=== PATIENT | female | born 1975 | race Caucasian/White ===

== ENCOUNTER → 2018-01-18 | Outpatient (CLI) | payer MEDICARE ==
[~2018-01-18] MED LIST: ACET-789 PO; AMLO10TA82 PO; ATOM100C PO; BPR150TCR PO; CETI10CA PO; DIAZ5SOL3 PO; FLAX100032 PO; IBP600T1 PO; IOHEXOL 350 MG/ML 100 ML (OMNIPAQUE 350) VIAL IV ONE; LORA1TAB PO; METH0.2T45 PO; MTF500T PO; NAPR220C11 PO; NS 250 ML (IVPB) BAG IV ONE; OMEP20CA6 PO; OXYC-12 PO; TRAM50TA2 PO
[2018-01-18 09:21] LABS: ALBUMIN 4.2 GM/DL (3.2-4.5); BILIRUBIN,TOTAL 0.4 MG/DL (0.1-1.0); CALCIUM 9.5 MG/DL (8.5-10.1); CREATININE SERUM 1.08 MG/DL (0.60-1.30); POTASSIUM 4.8 MMOL/L (3.6-5.0); TOTAL PROTEIN 6.6 GM/DL (6.4-8.2)
--- NOTE | 2018-01-18 10:45 | Diagnostic Imaging Report ---
PROCEDURE: CT abdomen and pelvis with contrast. TECHNIQUE: Multiple contiguous axial images were obtained through the abdomen and pelvis after administration of intravenous contrast. INDICATION: Abdominal pain and possible hernia. COMPARISON: No prior studies are available for comparison. FINDINGS: The lung bases are clear. There is generalized low density throughout the liver suggestive of hepatic steatosis. No discrete liver mass is identified. The gallbladder is surgically absent. The pancreas and spleen are unremarkable. No adrenal mass is detected. The kidneys are unremarkable. Aorta is non-aneurysmal. There are mildly prominent lymph nodes in the cindi hepatis and portacaval region. Portacaval nodes are approximately 10-11 mm short axis. No central retroperitoneal lymphadenopathy is identified. No definite mesenteric lymphadenopathy is identified. Small and large bowel loops are of normal caliber. There is generalized colonic diverticulosis, most prominent in the descending and sigmoid colon, however, there are no findings to suggest acute diverticulitis. The bladder is unremarkable. The uterus appears to be surgically absent. No pelvic lymphadenopathy is seen. The bony structures are nonacute. There is a small fat-containing umbilical hernia noted. IMPRESSION: 1. Hepatic steatosis. 2. Nonspecific mild cindi hepatis and portacaval lymphadenopathy, etiology indeterminate. Continued close followup is recommended. 3. Small fat-containing umbilical hernia. 4. Uncomplicated diverticulosis. Dictated by: Dictated on workstation # [id number]
== END ==
LOC: RAD 08:36
PROVIDERS: ATTEND Nurse Practitioner Family
DX: K42.9 Umbilical hernia without obstruction or gangrene (principal); K76.0 Fatty (change of) liver, not elsewhere classified; R59.0 Localized enlarged lymph nodes; K57.30 Diverticulosis of large intestine without perforation or abscess without bleeding; Z90.49 Acquired absence of other specified parts of digestive tract
CPT/HCPCS: 36415; 74177; 80053

== ENCOUNTER → 2018-04-23 | Outpatient (CLI) | payer MEDICARE ==
[~2018-04-23] MED LIST changes: -IOHEXOL 350 MG/ML 100 ML (OMNIPAQUE 350) VIAL IV ONE; -NS 250 ML (IVPB) BAG IV ONE
--- NOTE | 2018-04-23 08:41 | Diagnostic Imaging Report ---
PROCEDURE: CT abdomen with contrast only. TECHNIQUE: Multiple contiguous axial images were obtained through the abdomen after the administration of intravenous contrast. INDICATION: Perihepatic and perigastric lymphadenopathy. The exam compared to 01/18/2018. Portacaval nodes at maximal short axis dimensions 9.2 and 7.9 mm today, previously 10.6 and 10.0 mm. Nodule at the cindi hepatis with a short axis dimension 7.9 mm today, previously 10 mm. The pancreas is unremarkable. Gallbladder absent. The liver unremarkable. Spleen negative. There is no adrenal mass. The unobstructed kidneys appeared normal. No dominant or suspicious mass. There is no ascites, obstructive features or inflammatory process. The lung base is nonacute. The osseous structures unremarkable. IMPRESSION: Small right upper quadrant portacaval lymph nodes measured smaller than on prior, no suspicious finding. No acute pathology. No adverse development. Dictated by: Dictated on workstation # [id number]
== END ==
LOC: RAD 07:51
PROVIDERS: ATTEND Nurse Practitioner
DX: R59.0 Localized enlarged lymph nodes (principal)
CPT/HCPCS: 74160

== ENCOUNTER 2019-07-13 19:54 | Emergency (ER) | payer MEDICARE ==
[~2019-07-13] VITALS: Ht 165.1 cm; Wt 119.7 kg
[2019-07-13] MEDS ORDERED: NS IV 1000 ML 1,000 ML IV STA (20:19)
[2019-07-13 20:28] LABS: BASOPHILS % (AUTO) 0 % (0-10); EOSINOPHILS # (AUTO) 0.1 10^3/uL (0.0-0.3); EOSINOPHILS % (AUTO) 1 % (0-10); HEMATOCRIT 45 % (35-52); HEMOGLOBIN 14.9 G/DL (11.5-16.0); LYMPHOCYTES # (AUTO) 1.1 X 10^3 (1.0-4.0); LYMPHOCYTES % (AUTO) 7 % (12-44); MEAN CORPUSCULAR HEMOGLOBIN 29 PG (25-34); MEAN CORPUSCULAR HGB CONC 34 G/DL (32-36); MEAN CORPUSCULAR VOLUME 87 FL (80-99); MEAN PLATELET VOLUME 9.3 FL (7.4-10.4); MONOCYTES % (AUTO) 7 % (0-12); NEUTROPHILS # (AUTO) 13.3 X 10^3 (1.8-7.8); NEUTROPHILS % (AUTO) 86 % (42-75); PLATELET COUNT 279 10^3/uL (130-400); RED CELL DISTRIBUTION WIDTH 13.6 % (10.0-14.5); WHITE BLOOD COUNT 15.6 10^3/uL (4.3-11.0)
[2019-07-13] MEDS ORDERED: ONDANSETRON 4 MG/2 ML (SDV) Z0FRAN IVP ONE (20:30)
[2019-07-13] MEDS ORDERED: HYOSCYAMINE 0.125 MG (LEVSIN) TAB SL ONE (20:30)
--- NOTE | 2019-07-13 20:30 | ED GI ---
General Chief Complaint: General Problems/Pain Stated Complaint: HEADACHE, UPSET STOMACH,FEVER Nursing Triage Note: pt arrives with c/o headache, chills, nausea, body aches and diarrhea onset yesterday. pt states taking tylenol at 1800. pt denies vomiting. pt states a fever of 101.9 this afternoon. Sepsis Screen: No Definite Risk Source of Information: Patient Exam Limitations: No Limitations (CHARLEY FERRELL) History of Present Illness Date Seen by Provider: Jul 13, 2019 Time Seen by Provider: 20:00 Initial Comments Pt presents with fever, chills, and diarrhea that started yesterday. The diarrhea is watery with no blood, and the fever and chills have been temporarily relieved by the Tylenol she took prior to arriving. She states she has a history fo abdominal pain for which she was given dicyclomine, however she only take 1 of the 4 pills she has been prescribed due to adverse side effects. Timing/Duration: 1 Day Severity/Quality: Moderate Location: Unknown Radiation: No Radiation Activities at Onset: None Modifying Factors: Improves With Eating Associated Symptoms: Fever/Chills, Fatigue, Headache, Nausea/Vomiting (CHARLEY FERRELL) Initial Comments Here with report of fever, chills and diarrhea that started 1-2 days ago and has and persistent since. Denies bloody diarrhea or blood in her urine. She has had fever and chills with body aches and overall feels terrible. She took Tylenol and ibuprofen and that's only helping minimally. Timing/Duration: 1-2 Days Severity/Quality: Moderate, Cramping Location: Generalized Abdomen Radiation: No Radiation Activities at Onset: None Modifying Factors: Improves With Defecating; Worsens With Eating Associated Symptoms: Fever/Chills, Fatigue, Headache, Nausea/Vomiting (HAYDEN MOHR MD) Allergies and Home Medications Allergies Coded Allergies: Cefpodoxime (Verified Allergy, Unknown, 05/27/07) Cephalexin (Verified Allergy, Unknown, 05/27/07) Tetracycline (Verified Allergy, Unknown, "CYCLINES", 05/27/07) Home Medications Amlodipine Besylate 10 Mg Tablet, 1 EACH PO DAILY, (Reported) Atomoxetine Hcl 100 Mg Capsule, 100 MG PO DAILY, (Reported) Bupropion Hcl 150 Mg Tablet, 3 TAB PO DAILY, (Reported) Cetirizine Hcl 10 Mg Capsule, 10 MG PO HS, (Reported) Diazepam 5 Mg/5 Ml Solution, 5 MG PO PRN, (Reported) Flaxseed Oil 1,000 Mg Capsule, 1,000 MG PO BID, (Reported) Ibuprofen 600 Mg Tab, 600 MG PO Q6H, (Reported) Lorazepam 1 Mg Tablet, 1 EACH PO PRN, (Reported) Metformin Hcl 500 Mg Tablet, 1 EACH PO BID, (Reported) Naproxen Sodium 220 Mg Capsule, 440 MG PO BID, (Reported) Omeprazole 20 Mg Capsule.dr, 20 MG PO DAILY, (Reported) Oxycodone Hcl/Acetaminophen 1 Each Tablet, 1-2 EACH PO Q4H, (Reported) Tramadol Hcl 50 Mg Tablet, 50 MG PO PRN, (Reported) Patient Home Medication List Home Medication List Reviewed: Yes (HAYDEN MOHR MD) Review of Systems Review of Systems Constitutional: chills, fever, weakness EENTM: Nose Congestion, Other (Chronic sinus pressure) Respiratory: Denies Cough, Denies Shortness of Air Cardiovascular: No Symptoms Reported; Denies Chest Pain Gastrointestinal: Abdominal Pain, Diarrhea, Nausea, Poor Appetite; Denies Vomiting Genitourinary: No Symptoms Reported Musculoskeletal: no symptoms reported Skin: no symptoms reported (CHARLEY FERRELL) Constitutional: see HPI EENTM: No Throat Pain; Other (Chronic sinus pressure) Respiratory: No Symptoms Reported Cardiovascular: No Symptoms Reported Gastrointestinal: See HPI Genitourinary: No Symptoms Reported Musculoskeletal: No joint pain; muscle pain Skin: no symptoms reported (HAYDEN MOHR MD) All Other Systems Reviewed Negative Unless Noted: Yes (HAYDEN MOHR MD) Past Qusylto-Gnqquj-Pbbecu Hx Past Med/Social Hx: Reviewed Nursing Past Med/Soc Hx (HAYDEN MOHR MD) Patient Social History Alcohol Use: Denies Use Recreational Drug Use: No Recent Foreign Travel: No Contact w/Someone Who Travel: No Recent Infectious Disease Expo: Yes Recent Hopitalizations: No (SURGERIES/CHILDBIRTH/CONCUSSION/KIDNEY STONE/MENTAL ILLNESS/SPIDER BITE) Physical Abuse: No Sexual Abuse: No Mistreated: No Fear: No (CHARLEY FERRELL) Past Medical History Surgeries: Yes (CHEVY/APPY//D & C) Respiratory: No Cardiac: No Neurological: No Reproductive Disorders: Yes (PCOS/ENDOMETRIOSIS/OVARIAN CYST) Sexually Transmitted Disease: No Gastrointestinal: Yes Musculoskeletal: Yes Endocrine: No Psychosocial: Yes Blood Disorders: Yes (CHARLEY FERRELL) Family Medical History Reviewed Nursing Family Hx (HAYDEN MOHR MD) No Pertinent Family Hx (HAYDEN MOHR MD) Physical Exam Vital Signs Vital Signs - First Documented 07/13/19 20:14 Temp 99.5 Pulse 106 Resp 18 B/P (MAP) 149/80 (103) O2 Delivery Room Air (HAYDEN MOHR MD) Vital Signs Capillary Refill : Less Than 3 Seconds (CHARLEY FERRELL) Height/Weight/BMI Height: 5'5.00" Weight: 264lbs. 0.0oz. [id number]; 43.93 BMI Method:Stated General Appearance: WD/WN, no apparent distress Neck: non-tender, full range of motion, supple, normal inspection Respiratory: chest non-tender, lungs clear, normal breath sounds, no respiratory distress, no accessory muscle use Cardiovascular: regular rate, rhythm, no JVD, no murmur Peripheral Pulses: 2+ Dorsalis Pedis (R), 2+ Left Dors-Pedis (L), 2+ Radial Pulses (R), 2+ Radial Pulses (L) Gastrointestinal: normal bowel sounds, soft, no pulsatile mass, tenderness (Mild LLQ tenderness that is chronic) Extremities: normal range of motion, no calf tenderness Neurologic/Psychiatric: no motor/sensory deficits, alert, normal mood/affect, oriented x 3 Skin: normal color, warm/dry (CHARLEY FERRELL) General Appearance: WD/WN, mild distress HEENT: PERRL/EOMI, pharynx normal Neck: non-tender, full range of motion, supple, normal inspection Respiratory: lungs clear, normal breath sounds, no respiratory distress Cardiovascular: no murmur, tachycardia Gastrointestinal: soft, tenderness (Mild LLQ tenderness that is chronic) Extremities: normal range of motion, no pedal edema, no calf tenderness Back: normal inspection, no CVA tenderness, no vertebral tenderness Neurologic/Psychiatric: alert, oriented x 3 Skin: normal color, warm/dry (HAYDEN MOHR MD) Focused Exam Lactate Level 07/13/19 22:57: Lactic Acid Level 1.09 (HAYDEN MOHR MD) Lactic Acid Level Laboratory Tests Test 07/13/19 22:57 Lactic Acid Level 1.09 MMOL/L (0.50-2.00) (HAYDEN MOHR MD) Progress/Results/Core Measures Results/Orders Lab Results Laboratory Tests Test 07/13/19 20:04 07/13/19 21:08 07/13/19 22:57 Range/Units White Blood Count 15.6 H 4.3-11.0 10^3/uL Red Blood Count 5.12 4.35-5.85 10^6/uL Hemoglobin 14.9 11.5-16.0 G/DL Hematocrit 45 35-52 % Mean Corpuscular Volume 87 80-99 FL Mean Corpuscular Hemoglobin 29 25-34 PG Mean Corpuscular Hemoglobin Concent 34 32-36 G/DL Red Cell Distribution Width 13.6 10.0-14.5 % Platelet Count 279 130-400 10^3/uL Mean Platelet Volume 9.3 7.4-10.4 FL Neutrophils (%) (Auto) 86 H 42-75 % Lymphocytes (%) (Auto) 7 L 12-44 % Monocytes (%) (Auto) 7 0-12 % Eosinophils (%) (Auto) 1 0-10 % Basophils (%) (Auto) 0 0-10 % Neutrophils # (Auto) 13.3 H 1.8-7.8 X 10^3 Lymphocytes # (Auto) 1.1 1.0-4.0 X 10^3 Monocytes # (Auto) 1.0 0.0-1.0 X 10^3 Eosinophils # (Auto) 0.1 0.0-0.3 10^3/uL Basophils # (Auto) 0.0 0.0-0.1 10^3/uL Neutrophils % (Manual) 74 % Lymphocytes % (Manual) 8 % Monocytes % (Manual) 8 % Eosinophils % (Manual) 0 % Basophils % (Manual) 0 % Band Neutrophils 10 % Blood Morphology Comment NORMAL Prothrombin Time 13.9 12.2-14.7 SEC INR Comment 1.0 0.8-1.4 Activated Partial Thromboplast Time 32 24-35 SEC Sodium Level 140 135-145 MMOL/L Potassium Level 3.9 3.6-5.0 MMOL/L Chloride Level 104 98-107 MMOL/L Carbon Dioxide Level 23 21-32 MMOL/L Anion Gap 13 5-14 MMOL/L Blood Urea Nitrogen 13 7-18 MG/DL Creatinine 1.18 0.60-1.30 MG/DL Estimat Glomerular Filtration Rate 50 BUN/Creatinine Ratio 11 Glucose Level 110 H 70-105 MG/DL Calcium Level 9.3 8.5-10.1 MG/DL Corrected Calcium 9.1 8.5-10.1 MG/DL Total Bilirubin 0.7 0.1-1.0 MG/DL Aspartate Amino Transf (AST/SGOT) 16 5-34 U/L Alanine Aminotransferase (ALT/SGPT) 26 0-55 U/L Alkaline Phosphatase 92 40-136 U/L C-Reactive Protein High Sensitivity 6.51 H 0.00-0.50 MG/DL Total Protein 6.6 6.4-8.2 GM/DL Albumin 4.2 3.2-4.5 GM/DL Urine Color YELLOW Urine Clarity CLEAR Urine pH 6 5-9 Urine Specific [place] 1.005 L 1.016-1.022 Urine Protein 1+ H NEGATIVE Urine Glucose (UA) NEGATIVE NEGATIVE Urine Ketones NEGATIVE NEGATIVE Urine Nitrite NEGATIVE NEGATIVE Urine Bilirubin NEGATIVE NEGATIVE Urine Urobilinogen NORMAL NORMAL MG/DL Urine Leukocyte Esterase 1+ H NEGATIVE Urine RBC (Auto) NEGATIVE NEGATIVE Urine RBC NONE /HPF Urine WBC 0-2 /HPF Urine Squamous Epithelial Cells 25-50 H /HPF Urine Crystals NONE /LPF Urine Bacteria NONE /HPF Urine Casts NONE /LPF Urine Mucus NEGATIVE /LPF Urine Culture Indicated NO Lactic Acid Level 1.09 0.50-2.00 MMOL/L (HAYDEN MOHR MD) Micro Results Microbiology 07/13/19 Influenza Types A,B Antigen (RADHIKA) - Final, Complete (HAYDEN MOHR MD) My Orders Orders - HAYDEN MOHR MD Cbc With Automated Diff (07/13/19 20:19) Comprehensive Metabolic Panel (07/13/19 20:19) Hs C Reactive Protein (07/13/19 20:19) Ua Culture If Indicated (07/13/19 20:19) Influenza A And B Antigens (07/13/19 20:19) Ondansetron Injection (Zofran Injectio (07/13/19 20:30) Ns Iv 1000 Ml (Sodium Chloride 0.9%) (07/13/19 20:19) Hyoscyamine Sl Tablet (Levsin Sl Tablet) (07/13/19 20:30) Ed Iv/Invasive Line Start (07/13/19 20:19) Manual Differential (07/13/19 20:04) Lactic Acid Analyzer (07/13/19 22:18) Blood Culture (07/13/19 22:18) Ed Iv/Invasive Line Start (07/13/19 22:18) Lactated Ringers (Lr 1000 Ml Iv Solution (07/13/19 22:18) Stool Culture (07/13/19 23:20) Rotavirus Antigen (07/13/19 23:20) Sputum Culture (07/13/19 23:28) Protime With Inr (07/13/19:28) Partial Thromboplastin Time (07/13/19 23:28) Chest 1 View, Ap/Pa Only (07/13/19 23:28) Vital Signs Adult Sepsis Patie Q15M (07/13/19 23:28) Remove Rings In Anticipation O (07/13/19 23:28) Piperacillin Sodium/Tazobactam (Zosyn Vi (07/14/19 00:15) Metronidazole 500mg/100ml Ivpb (Flagyl 5 (07/14/19 00:15) Fentanyl Injection (Sublimaze Injection (07/14/19 00:50) Fentanyl Injection (Sublimaze Injection (07/14/19 00:58) (HAYDEN MOHR MD) Medications Given in ED Current Medications Medications Dose Ordered Sig/Edwina Route Start Time Stop Time Status Last Admin Dose Admin Hyoscyamine Sulfate 0.125 mg ONCE ONCE SL 07/13/19 20:30 07/13/19 20:31 DC 07/13/19 20:30 0.125 MG Ketorolac Tromethamine 30 mg ONCE ONCE IVP 07/13/19 22:30 07/13/19 22:31 DC 07/13/19 22:57 30 MG Lactated Ringer's 1,000 ml @ 0 mls/hr Q0M ONCE IV 07/13/19 22:18 07/13/19 22:20 DC 07/13/19 22:57 0 MLS/HR Ondansetron HCl 4 mg ONCE ONCE IVP 07/13/19 20:30 07/13/19 20:31 DC 07/13/19 20:30 4 MG Piperacillin Sod/ Tazobactam Sod 4.5 gm/Sodium Chloride 100 ml @ 200 mls/hr ONCE ONCE IV 07/14/19 00:15 07/14/19 00:44 DC 07/14/19 00:48 200 MLS/HR (HAYDEN MOHR MD) Vital Signs/I&O 07/13/19 07/13/19 20:14 23:00 Temp 99.5 103.1 Pulse 106 106 Resp 18 20 B/P (MAP) 149/80 (103) 135/55 O2 Delivery Room Air 07/14/19 00:00 Intake Total 1000 ml Balance 1000 ml (HAYDEN MOHR MD) Blood Pressure Mean: 103 Progress Progress Note : Time: 20:00 Progress Note Patient seen by me. She reports diarrhea associated with fatigue, fever and chills that started yesterday. She has only been able to take in minimal fluids today due to nausea. She has a history of abdominal pain treated with dicyclomine. I spoke with Dr Mohr about the patient he order a CBC, CMP, UA, Nasal flu swab, 1L of fluids, and hyoscyamine. We will monitor the patient and wait for labs to return. (CHARLEY FERRELL) Progress Note : Progress Note Has seen and evaluated patient and agree with above except as indicated. Have directed the plan of care. IV, labs, UA, normal saline 1 L bolus and less than 0.125 mg by mouth. Monitor patient. 2230: We have added CT abdomen pelvis and Toradol 30 mg IV due to persistence of pain and abnormal labs. Monitor patient. 2355: CT does note colitis. Given patient's persistent diarrhea and fever as well as other abnormalities, patient will require admission. We have ordered stool for culture as well as rotavirus. We have initiated IV antibiotics. Patient is allergic to cephalosporin so we will use Zosyn 4.5 g IV and Flagyl 500 mg IV. I discussed the case with Dr. Salazar, on-call for Dr. Tillman and he accepts patient for admission, inpatient status for her service. Discussed with patient and family who agree with plan and are appreciative. 0100: Patient still has pain. Fentanyl 75 g IV. Pending bed assignment but is admitted. (HAYDEN MOHR MD) Diagnostic Imaging Diagonstic Imaging: CT Plain Films/CT/US/NM/MRI: abdomen, pelvis Comments Mild low attenuation mural thickening suggested in the cecum and proximal ascending colon. Fluid stool throughout the colon. Findings may represent colitis. There is also moderate sigmoid diverticulosis without convincing evidence of diverticulitis. Reviewed: Reviewed Night [facility] Study (HAYDEN MOHR MD) Departure Communication (Admissions) Time/Spoke to Admitting Phy: 23:55 (HAYDEN MOHR MD) Impression Primary Impression: Colitis Additional Impression: Intractable diarrhea Disposition: ADMITTED INPATIENT Condition: Stable Admissions Decision to Admit Reason: Admit from ER (General) Decision to Admit/Date: Jul 13, 2019 Time/Decision to Admit Time: 23:55 (HAYDEN MOHR MD) Departure-Patient Inst. Referrals: JAMILA TILLMAN MD (PCP/Family) Primary Care Physician CHARLEY FERRELL Jul 13, 2019 20:30 HAYDEN MOHR MD Jul 14, 2019 01:06
[2019-07-13 20:40] LABS: ALBUMIN 4.2 GM/DL (3.2-4.5); BILIRUBIN,TOTAL 0.7 MG/DL (0.1-1.0); CALCIUM 9.3 MG/DL (8.5-10.1); CREATININE SERUM 1.18 MG/DL (0.60-1.30); POTASSIUM 3.9 MMOL/L (3.6-5.0); TOTAL PROTEIN 6.6 GM/DL (6.4-8.2)
[2019-07-13 20:50] LABS: BAND NEUTROPHILS 10 %; BASOPHILS % (MANUAL) 0 %; EOSINOPHILS % (MANUAL) 0 %; LYMPHOCYTES % (MANUAL) 8 %; MONOCYTES % (MANUAL) 8 %; NEUTROPHILS % (MANUAL) 74 %; RBC MORPH NORMAL
[2019-07-13 21:13] LABS: BILIRUBIN,URINE NEGATIVE (NEGATIVE); CLARITY,URINE CLEAR; COLOR,URINE YELLOW; GLUCOSE, URINE (UA) NEGATIVE (NEGATIVE); KETONES,URINE NEGATIVE (NEGATIVE); LEUKOCYTE ESTERASE ,URINE 1+ (NEGATIVE); NITRITE,URINE NEGATIVE (NEGATIVE); PH,URINE 6 (5-9); PROTEIN,URINE 1+ (NEGATIVE); UROBILINOGEN,URINE NORMAL (NORMAL)
[2019-07-13 21:24] LABS: SQUAMOUS EPITHELIAL CELL,UR 25-50 /HPF; WBC,URINE 0-2 /HPF
[2019-07-13] MEDS ORDERED: LACTATED RINGERS 1,000 ML IV ONE (22:18)
[2019-07-13] MEDS ORDERED: KETOROLAC 30 MG/ML VIAL IVP ONE (22:30)
[2019-07-13 23:42] LABS: PROTHROMBIN TIME PATIENT 13.9 SEC (12.2-14.7)
[2019-07-14] MEDS ORDERED: PIPERACILLIN SODIUM/TAZOBACTAM 4.5 GM in NS (IVPB) 100 ML IV ONE (00:15)
[2019-07-14] MEDS ORDERED: metroNIDAZOLE 500MG/100ML IVPB 100 ML IV ONE (00:15)
--- NOTE | 2019-07-14 00:15 | NUR ---
PT TO BE ADMITTED, BUT WILL REMAIN IN ER UNTIL BED AVAILABLE/STAFFING AVAILABILITY.
[2019-07-14] MEDS ORDERED: fentaNYL INJECTION 100 MCG/2 ML AMP ONE (00:50)
[2019-07-14] MEDS ORDERED: fentaNYL INJECTION 100 MCG/2 ML AMP IVP STA ×2 (00:58→03:38)
--- NOTE | 2019-07-14 01:00 | NUR ---
PT RESTING IN BED QUIETLY. NO CONCERNS AT THIS TIME. VSS.
--- NOTE | 2019-07-14 02:00 | NUR ---
PT UP TO BATHROOM. NO CONCERNS AT THIS TIME. VSS.
[2019-07-14] MEDS ORDERED: NS IV 1000 ML 1,000 ML IV SCH (02:15)
--- NOTE | 2019-07-14 03:30 | NUR ---
PT UP TO BATHROOM. DENIES PAIN OR DISCOMFORT. NO CONCERNS AT THIS TIME. VSS.
[2019-07-14] MEDS ORDERED: ACETAMINOPHEN 500 MG TAB (TYLENOL) PO STA (03:38)
[2019-07-14] MEDS ORDERED: ONDANSETRON 4 MG/2 ML (SDV) Z0FRAN IVP ONE (03:45)
--- NOTE | 2019-07-14 06:40 | Diagnostic Imaging Report ---
TECHNIQUE: Multiple contiguous axial images were obtained through the abdomen and pelvis after administration of intravenous contrast. Auto Exposure Controls were utilized during the CT exam to meet ALARA standards for radiation dose reduction. INDICATION: Headache, upset stomach. EXAMINATION: CT abdomen and pelvis with contrast, 07/13/19. COMPARISON: Abdomen and pelvis CT from 01/18/2018. FINDINGS: No acute process is seen within the visualized lung bases. Osseous structures demonstrate no acute abnormality. Degenerative findings noted. There has been previous cholecystectomy. There is fatty infiltration throughout the liver. The spleen, adrenal glands unremarkable for acute abnormality. Pancreas is slightly fatty in appearance. No surrounding inflammatory change is appreciated. The kidneys demonstrate no acute disease. There is no ascites or free air. Diverticulosis is noted without evidence for diverticulitis. Minimal mural thickening noted along the cecum and ascending colon, nonspecific in nature. IMPRESSION: 1. Minimal wall thickening of the right colon as described, nonspecific, perhaps due to focal colitis, correlate with symptoms. No significant surrounding inflammatory change is seen. Diverticulosis also noted but no evidence for diverticulitis. Please note, appendix is not visualized. Dictated by: Dictated on workstation # [id number]
--- NOTE | 2019-07-14 06:43 | Diagnostic Imaging Report ---
INDICATION: Upset stomach, headaches. EXAMINATION: Chest dated 07/13/2019. COMPARISON: 08/28/2012. FINDINGS: Linear atelectasis is seen at both lung bases. No infiltrates or effusions. No pneumothorax is seen. Heart is unremarkable. Pulmonary vasculature may be slightly congested. IMPRESSION: 1. Mild pulmonary vascular congestion. 2. Bibasilar atelectasis. Dictated by: Dictated on workstation # [id number]
[2019-07-14] MEDS ORDERED: fentaNYL INJECTION 100 MCG/2 ML AMP IVP ONE (06:45)
[2019-07-14] MEDS ORDERED: metroNIDAZOLE 500MG/100ML IVPB 100 ML IV SCH (07:15)
[2019-07-14] MEDS ORDERED: PIPERACILLIN/TAZOBACTAM (BULK) 4.5 GM in NS (IVPB) 100 ML IV SCH (08:30)
[2019-07-14] MEDS ORDERED: ACETAMINOPHEN 500 MG TAB (TYLENOL) PO ONE (11:00)
[2019-07-14 11:54] VITALS: BP 140/103
== END 2019-07-14 11:54 | disposition short-term general hospital (02) ==
LOC: EDUNIT# 19:54 → ER 19:56
DX: K52.9 Noninfective gastroenteritis and colitis, unspecified (principal); Z88.1 Allergy status to other antibiotic agents; Z79.84 Long term (current) use of oral hypoglycemic drugs
CPT/HCPCS: 36415; 71045; 74177; 80053; 81000; 83605; 85007; 85027; 85610; 85730; 86141; 87015; 87040; 87045; 87046; 87425; 87804; 87899

== ENCOUNTER 2020-06-25 11:12 | Outpatient (CLI) | payer MEDICARE ==
[~2020-06-25] VITALS: Ht 162 cm; Wt 131.3 kg
[2020-06-25] MEDS ORDERED: FLAX100031 PO (12:11)
[2020-06-25] MEDS ORDERED: NF-VITD400 PO (12:11)
[2020-06-25] MEDS ORDERED: FEXO1TAB43 PO (12:11)
[2020-06-25] MEDS ORDERED: FERR-84 PO (12:11)
[2020-06-25] MEDS ORDERED: BUPR300T98 PO (12:11)
[2020-06-25] MEDS ORDERED: VITA1CAP19 PO (12:11)
[2020-06-25] MEDS ORDERED: OMEP20CA18 PO (12:11)
== END 2020-06-25 12:20 | disposition home or self-care (01) ==
LOC: PREOP 11:12
PROVIDERS: ATTEND Surgery
DX: Z01.818 Encounter for other preprocedural examination (principal)

== ENCOUNTER 2020-06-28 08:57 | Day surgery (SDC) | payer MEDICARE ==
[2020-06-28] VITALS (11 sets, daily range): BP systolic 107–130; BP diastolic 75–92
[~2020-06-28] VITALS: Ht 162 cm; Wt 131.3 kg
[~2020-06-28 08:57] MED LIST changes: +BUPR300T98 PO; +FERR-84 PO; +FEXO1TAB43 PO; +FLAX100031 PO; +NF-VITD400 PO; +OMEP20CA18 PO; +VITA1CAP19 PO
[2020-06-28] MEDS ORDERED: BUP/EPI 0.5% 1:200,000 (MARCAINE) 10ML VIAL IJ ONE (10:00)
[2020-06-28] MEDS ORDERED: ROCURONIUM 10 MG/ML 5 ML SYRINGE IV ONE (10:06)
[2020-06-28] MEDS ORDERED: LIDOCAINE PF 2% 5 ML (XYLOCAINE) VIAL ONE (10:06)
[2020-06-28] MEDS ORDERED: proPOfol 200 MG/20 ML (DIPRIVAN) VIAL IV ONE ×2 (10:06→10:11)
[2020-06-28] MEDS ORDERED: ONDANSETRON 4 MG/2 ML (SDV) Z0FRAN ONE (10:06)
[2020-06-28] MEDS ORDERED: fentaNYL INJECTION 100 MCG/2 ML AMP ONE (10:07)
[2020-06-28] MEDS ORDERED: MIDAZOLAM 2 MG/2 ML (VERSED) VIAL ONE (10:07)
[2020-06-28] MEDS ORDERED: SEVOFLURANE (ULTANE) 15 ML INHAL SOLN ONE ×2 (10:07→11:31)
[2020-06-28] MEDS ORDERED: LACTATED RINGERS 1,000 ML IV PRN (10:14)
[2020-06-28] MEDS ORDERED: ceFAZolin 2 GM IV Premixed 50 ML IV ONE (11:00)
[2020-06-28] MEDS ORDERED: CLINDAMYCIN 900 MG/50 ML IVPB 50 ML IV ONE ×2 (11:05→11:15)
--- NOTE | 2020-06-28 11:07 | Progress Note-Pre Operative ---
Pre-Operative Progress Note H&P Reviewed The H&P was reviewed, patient examined and no changes noted. Time Seen by Provider: 11:04 Date H&P Reviewed: Jun 28, 2020 Time H&P Reviewed: 11:05 Pre-Operative Diagnosis: Right inguinal mass, site marked JAMAAL HINES DO Jun 28, 2020 11:07
[2020-06-28] MEDS ORDERED: FLUC150T2 PO (11:44)
[2020-06-28] MEDS ORDERED: SULF1TAB35 PO (11:44)
--- NOTE | 2020-06-28 12:07 | Progress Note-Post Operative ---
Post-Operative Progess Note Surgeon (s)/[employer] (s) Surgeon JAMAAL HINES DO [employer]: WALDO Kaplan Pre-Operative Diagnosis Right inguinal mass, site marked Post-Operative Diagnosis same pending path Procedure & Operative Findings Date of Procedure 06/28/20 Procedure Performed/Findings Excision of inguinal mass, 8.3 x 3.2 cm into subcutaneous tissue Anesthesia Type MAC Estimated Blood Loss Estimated blood loss (mL): less than 5ml Specimens/Packing Specimens Removed right inguinal mass JAMAAL HINES DO Jun 28, 2020 12:07
[2020-06-28] MEDS ORDERED: ACHYD1T PO (12:08)
--- NOTE | 2020-06-28 12:09 | Discharge Inst-Surgical ---
Discharge Inst-Surgical Depart Medication/Instructions New, Converted or Re-Newed RX: RX Given to Pt/Family Patient Instructions Follow up Appt: Make appointment for 1 week. [phone] Instructions: No lifting greater than 20 pounds. No strenuous activity. May shower in 24 hours, no tub bath or soaking. Use incentive spirometer at home as directed. No Smoking Skin/Wound Care: May remove bandages in am. You need to leave the Dermabond on incision it will fall off on it's own. Symptoms to Report: Appetite Changes, Extremity Discoloration, Numbness/Tingling, Swelling Increased, Bleeding Excessive, Eyesight Changes, Pain Increased, Urine Color Change, Constipation(Persistent), Fever over 101 degree F, Pain/Pressure in chest, Urinating Difficulty, Cough Up/Vomit Blood, Heart Beat Irreg/Pounding, Pain/Pressure in jaw, Cramps in feet or legs, Lightheadedness, Pain/Pressure in shoulder, Diarrhea(Persistent), Memory Changes Suddenly, Questions/Concerns, Weight gain consecutive days, Dizziness/Fainting, Nausea/Vomiting, Shortness of Breath, Weight gain over 2 pounds If questions or concerns contact your physician Or seek help at emergency department. Activity Activity Instructions: Avoid Stress to Incision Driving Instructions: No Driving/Refer to Dr. Encarnacion Discharge Diet: No Restrictions Diet After 24 Hours: Clear Liquid if Nauseous If Any Problems/Questions/Issu: Contact Your Physician, Go to Emergency Room Skin/Wound Care Infection Signs and Symptoms: Increased Redness, Foul Odor of Wound, Increased Drainage, Skin Itchy or Has a Rash, Increased Swelling, Temperature Above 101 F Bathing Instructions: Shower Stitches/Anali/Dermabond Dis: JAMAAL Elena DO Jun 28, 2020 12:09
--- NOTE | 2020-06-28 12:14 | Anesthesia-General Post-Op ---
General Patient Condition Mental Status/LOC: Same as Preop Cardiovascular: Satisfactory Nausea/Vomiting: Absent Respiratory: Satisfactory Pain: Controlled Complications: Absent Post Op Complications Complications None Follow Up Care/Instructions Patient Instructions None needed. Anesthesia/Patient Condition Patient Condition Patient is doing well, no complaints, stable vital signs, no apparent adverse anesthesia problems. No complications reported per nursing. FREDY COOPER CRNA Jun 28, 2020 12:14
[2020-06-28] MEDS ORDERED: fentaNYL INJECTION 100 MCG/2 ML AMP IVP ONE (12:15)
[2020-06-28] MEDS ORDERED: morphine INJ 10 MG/ML 1ML (SYR OR VIAL) IVP ONE (12:15)
[2020-06-28] MEDS ORDERED: MEPERIDINE (DEMEROL) INJ 50 MG/ML IVP ONE (12:15)
[2020-06-28] MEDS ORDERED: ONDANSETRON 4 MG/2 ML (SDV) Z0FRAN IVP PRN (12:15)
--- NOTE | 2020-06-28 12:35 | NUR ---
TO AMB SURG FROM PAR PER CART. ALERT, RATES RIGHT GROIN SURGICAL SITE PAIN 1 ON NUMERIC SCALE. ICE PACK AT SITE. TAPED GAUZE DSG D/I TO SITE. PO FLUIDS PROVIDED.
--- NOTE | 2020-06-28 13:30 | NUR ---
NO CHANGE IN SITE ASSESSMENT. PAIN RATED "ABOUT A 2". PAIN MED OFFERED, STATES SHE WILL WAIT AND TAKE ONE AT HOME. HAS BEEN UP TO BR TO VOID, GAIT STEADY. TAKING PO FLUIDS WITHOUT PROBLEM. AWAITING DR HINES'S ARRIVAL FOR SIGNATURE ON HYDROCODONE/APAP SCRIPT TO GIVE TO PT ON DISMISSAL.
[2020-06-28] MEDS ORDERED: HYDROcodone/APAP 10 MG/325 MG (LORTAB) TAB PO ONE ×2 (14:00→14:05)
--- NOTE | 2020-06-28 14:13 | NUR ---
STATES RIGHT GROIN SURGICAL SITE PAIN IS 3. HAS HAD CRACKERS. HYDROCODONE/ACETAMINOPHEN 10/325 MG, ONE TAB, GIVEN PO. STILL AWAITING DR HINES'S ARRIVAL FOR DISMISSAL.
--- NOTE | 2020-06-28 14:40 | NUR ---
HYDROCODONE/APAP SCRIPT SIGNED BY DR. TATUM IS READY FOR DISMISSAL. SURGICAL SITE PAIN RATED 2.
--- NOTE | 2020-06-29 01:07 | OPERATIVE REPORT ---
DATE OF SERVICE: PREOPERATIVE DIAGNOSIS: Right inguinal mass. POSTOPERATIVE DIAGNOSIS: Right inguinal mass, pending pathology. PROCEDURE: Excision of right inguinal mass measuring 8.3 x 3.2 cm down into the subcutaneous tissue. SURGEON: Gen Sheridan DO TUBULAR RIVETER: Dulce Guerra MS3. ANESTHESIA: MAC. SPECIMEN: Right inguinal mass sent to pathology. This mass originating the subcutaneous tissue and the incision was 8.3 x 3.2 cm. INDICATION FOR PROCEDURE: The patient is a 44-year-old female, who had a mass that was in her right inguinal region getting bigger and then she said it eroded through the skin needed to get this removed. FINDINGS: The patient had a right inguinal mass that was removed and sent to pathology. This site had been marked preoperatively. PROCEDURE NOTE: After informed consent was obtained, the patient was brought to the operating room, placed on the operating table in supine position. Right leg was frog legged out. She was then sterilely prepped and draped in normal fashion. Local lidocaine was used to infiltrate the skin under and around this mass. I then made an elliptical incision, carried down through the skin into subcutaneous tissue with #15 blade measured this incision was 8.3 cm x 3.2 cm long. It went down into the subcutaneous tissue, deepened down to subcutaneous tissue with Bovie electrocautery, going down under and around this mass and removing en bloc. I then marked the specimen, short stitch superior, long stitch lateral, sent to pathology. Copiously irrigated with normal saline. Hemostasis obtained using Bovie electrocautery. I then elected to close this incision in 2 layers, closing the deep layer with a 3-0 Vicryl 5 interrupted subcutaneous stitches and then closed the skin with a 4-0 undyed Monocryl in a running subcuticular fashion. Area was cleaned and dried. Dermabond placed as well as then addressing. The patient tolerated the procedure. Sponge, instrument and needle count correct at the end of the case. Job ID: [id number] DocumentID: [id number] Dictated Date: 06/28/2020 17:47:28 Nuclear Engineering Technician Date: 06/29/2020 01:06:43 Dictated By: GEN SHERIDAN DO [facility]
== END 2020-06-28 14:40 | disposition home or self-care (01) ==
LOC: SDC 08:57
PROVIDERS: ATTEND Surgery
DX: C44.529 Squamous cell carcinoma of skin of other part of trunk (principal); I10 Essential (primary) hypertension; F32.9 Major depressive disorder, single episode, unspecified; F41.9 Anxiety disorder, unspecified; E78.5 Hyperlipidemia, unspecified; F41.1 Generalized anxiety disorder; F17.210 Nicotine dependence, cigarettes, uncomplicated; E66.9 Obesity, unspecified; Z68.43 Body mass index [BMI] 50.0-59.9, adult; Z79.899 Other long term (current) drug therapy; Z88.1 Allergy status to other antibiotic agents; Z90.710 Acquired absence of both cervix and uterus
CPT/HCPCS: 87081; 88305

== ENCOUNTER → 2020-11-02 | Outpatient (CLI) | payer MEDICARE ==
[~2020-11-02] MED LIST changes: +ACHYD1T PO; +FLUC150T2 PO; +SULF1TAB35 PO
--- NOTE | 2020-11-03 09:05 | NUR ---
Notified of positive COVID test.
== END ==
LOC: LABNPT 08:11
PROVIDERS: ATTEND Family Medicine
DX: U07.1 COVID-19 (principal); J06.9 Acute upper respiratory infection, unspecified
CPT/HCPCS: 87804; U0002; 87635

== ENCOUNTER 2021-03-24 05:58 | Emergency (ER) | payer MEDICARE ==
[~2021-03-24] VITALS: Ht 162 cm; Wt 127.0 kg
[2021-03-24 06:47] LABS: BILIRUBIN,URINE NEGATIVE (NEGATIVE); CLARITY,URINE CLEAR; COLOR,URINE YELLOW; GLUCOSE, URINE (UA) NEGATIVE (NEGATIVE); KETONES,URINE NEGATIVE (NEGATIVE); LEUKOCYTE ESTERASE ,URINE NEGATIVE (NEGATIVE); NITRITE,URINE NEGATIVE (NEGATIVE); PROTEIN,URINE NEGATIVE (NEGATIVE)
[2021-03-24 07:22] LABS: BACTERIA,URINE NEGATIVE /HPF
--- NOTE | 2021-03-24 07:23 | ED Abdominal Pain ---
General Chief Complaint: Abdominal/GI Problems Stated Complaint: RT SIDE PAIN Source of Information: Patient Exam Limitations: No Limitations History of Present Illness Date Seen by Provider: March 24, 2021 Time Seen by Provider: 07:10 Initial Comments Patient is a 45-year-old female who presents to the emergency department today with a chief complaint of right flank pain. Patient states that she woke up with pain in the middle the night. She states the pain was in her back and right side radiating around into her lower abdomen. Patient states the pain seemed to radiate into her vagina and urethra. Patient states that at its worst the pain was "a 20". She states now her pain is about "2". She states that she had some nausea. She did not vomit. She denies any problems with bowel movements. No diarrhea, black or bloody stools. She states that the pain reminds her of her kidney stone pain that she had about 20 years ago. She denies hematuria. She is endorsing some dysuria at this point and some urinary frequency. No abnormal vaginal discharge, the patient is status post hysterecto my. Patient tells me that she is primarily very tired at this point. She did not take anything for the pain. All other review of systems reviewed and negative except as stated above. Timing/Duration: 1-3 Hours Severity/Quality: Mild Location: RUQ, RLQ Radiation: Back Activities at Onset: None Associated Symptoms: Nausea/Vomiting Allergies and Home Medications Allergies Coded Allergies: cefpodoxime (Verified Allergy, Unknown, 06/25/20) cephalexin (Verified Allergy, Unknown, 06/25/20) doxycycline (Unverified Allergy, Unknown, Hives, 06/28/20) tetracycline (Verified Allergy, Unknown, "CYCLINES", 06/25/20) Home Medications Bupropion HCl 300 Mg Tab.er.24h, 300 MG PO DAILY, (Reported) Ferrous Sulfate 325 Mg Tablet, 325 MG PO DAILY, (Reported) Fexofenadine/Pseudoephedrine 1 Each Tab.er.24h, 1 EACH PO DAILY, (Reported) Flaxseed Oil 1,000 Mg Capsule, 1,000 MG PO DAILY, (Reported) Fluconazole 150 Mg Tablet, 150 MG PO DAILY, (Reported) Hydrocodone Bit/Acetaminophen 1 Ea Tab, 1 TAB PO Q6H Prescribed by: JAMAAL HINES on 06/28/20 1208 Omeprazole 20 Mg Capsule.dr, 20 MG PO DAILY, (Reported) Sulfamethoxazole/Trimethoprim 1 Each Tablet, 1 EACH PO BID, (Reported) Vitamin B Complex 1 Each Capsule, 1 EACH PO DAILY, (Reported) Vitamin D 10 Mcg Tablet, 400 MCG PO DAILY, (Reported) Patient Home Medication List Home Medication List Reviewed: Yes Review of Systems Review of Systems Constitutional: see HPI EENTM: No Symptoms Reported Respiratory: No Symptoms Reported Cardiovascular: No Symptoms Reported Gastrointestinal: Abdominal Pain Genitourinary: Burning, Frequency Musculoskeletal: back pain (right flank) Skin: no symptoms reported All Other Systems Reviewed Negative Unless Noted: Yes Past Nnnlkuh-Ikobww-Gvfqka Hx Patient Social History Type Used: Cigarettes 2nd Hand Smoke Exposure: Yes Recent Hopitalizations: No Seasonal Allergies Seasonal Allergies: Yes Past Medical History Surgeries: Yes (/D & C) Appendectomy, Gallbladder, Hysterectomy Respiratory: No Cardiac: No Neurological: No Reproductive Disorders: Yes (PCOS/ENDOMETRIOSIS/OVARIAN CYST) BREASTER History: Hysterectomy Sexually Transmitted Disease: No Genitourinary: Yes Kidney Stones Gastrointestinal: Yes Gastroesophageal Reflux, Chronic Constipation, Chronic Diarrhea Musculoskeletal: Yes Arthritis, Chronic Back Pain Endocrine: No HEENT: Yes (GLASSES) Loss of Vision: Denies Hearing Impairment: Denies Cancer: No Psychosocial: Yes Anxiety, Depression Integumentary: No Blood Disorders: Yes (ANEMIA ) Adverse Reaction/Blood Tranf: No (HAS HAD BLOOD WITH NO REACITON) Family Medical History No Pertinent Family Hx Physical Exam Vital Signs Vital Signs - First Documented 03/24/21 07:15 Temp 35.4 Pulse 81 Resp 18 B/P (MAP) 162/120 (134) Pulse Ox 95 Capillary Refill : Height/Weight/BMI Height: 5'5.00" Weight: 264lbs. 0.0oz. 119.453264zz; 50.03 BMI Method:Stated General Appearance: WD/WN, no apparent distress HEENT: PERRL/EOMI Respiratory: lungs clear, normal breath sounds, no respiratory distress, no accessory muscle use Cardiovascular: regular rate, rhythm Gastrointestinal: soft, tenderness (Mild right flank tenderness, no CVA tenderness, right sided suprapubic tenderness) Extremities: normal range of motion, non-tender, normal inspection, no pedal edema Back: normal inspection, no CVA tenderness Neurologic/Psychiatric: alert, normal mood/affect, oriented x 3 Skin: normal color, warm/dry Progress/Results/Core Measures Results/Orders Lab Results Laboratory Tests Test 03/24/21 06:30 03/24/21 07:26 Range/Units Urine Color YELLOW Urine Clarity CLEAR Urine pH 6.0 5-9 Urine Specific [place] 1.020 1.016-1.022 Urine Protein NEGATIVE NEGATIVE Urine Glucose (UA) NEGATIVE NEGATIVE Urine Ketones NEGATIVE NEGATIVE Urine Nitrite NEGATIVE NEGATIVE Urine Bilirubin NEGATIVE NEGATIVE Urine Urobilinogen 0.2 < = 1.0 MG/DL Urine Leukocyte Esterase NEGATIVE NEGATIVE Urine RBC (Auto) 2+ H NEGATIVE Urine RBC 2-5 H /HPF Urine WBC NONE /HPF Urine Squamous Epithelial Cells 2-5 /HPF Urine Crystals NONE /LPF Urine Bacteria NEGATIVE /HPF Urine Casts NONE /LPF Urine Mucus NEGATIVE /LPF Urine Culture Indicated NO Sodium Level 141 135-145 MMOL/L Potassium Level 4.2 3.6-5.0 MMOL/L Chloride Level 105 98-107 MMOL/L Carbon Dioxide Level 27 21-32 MMOL/L Anion Gap 9 5-14 MMOL/L Blood Urea Nitrogen 16 7-18 MG/DL Creatinine 1.17 0.60-1.30 MG/DL Estimat Glomerular Filtration Rate 50 BUN/Creatinine Ratio 14 Glucose Level 115 H 70-105 MG/DL Calcium Level 9.2 8.5-10.1 MG/DL My Orders Orders - KARLIE ALFONSO MD Ua Culture If Indicated (03/24/21 06:41) Ed Iv/Invasive Line Start (03/24/21 07:23) Basic Metabolic Panel (03/24/21 07:23) Abdomen/Kub 1view (03/24/21 07:23) Ct Abd/Pelvis Wo(Kidney Stone) (03/24/21 07:23) Ketorolac Injection (Toradol Injection) (03/24/21 07:30) Ondansetron Injection (Zofran Injectio (03/24/21 07:30) Medications Given in ED Current Medications Medications Dose Ordered Sig/Edwina Route Start Time Stop Time Status Last Admin Dose Admin Ketorolac Tromethamine 15 mg ONCE ONCE IVP 03/24/21 07:30 03/24/21 07:31 DC 03/24/21 07:31 15 MG Ondansetron HCl 4 mg ONCE ONCE IVP 03/24/21 07:30 03/24/21 07:31 DC 03/24/21 07:31 4 MG Vital Signs/I&O 03/24/21 07:15 Temp 35.4 Pulse 81 Resp 18 B/P (MAP) 162/120 (134) Pulse Ox 95 Progress Progress Note : Time: 08:52 Progress Note Rechecked patient. She is feeling much better. She has a little bit of discomfort periodically. Nothing like when she had onset of pain. CT scan of the abdomen and pelvis shows nothing acute in the right urinary tract. No evidence of stones. Patient will be sent home with supportive care, pushing fluids ibuprofen and Ty lenol. Return precautions have been given. She verbalized understanding. All questions are sought and answered. Patient is stable for discharge. Departure Impression Primary Impression: Acute right flank pain Additional Impression: Hematuria Qualified Codes: R31.9 - Hematuria, unspecified Disposition: 01 HOME, SELF-CARE Condition: Stable Departure-Patient Inst. Decision time for Depature: 08:53 Referrals: JAMILA ADAN MD (PCP/Family) Primary Care Physician Patient Instructions: Kidney Stones in Adults Add. Discharge Instructions: Drink plenty of fluids to stay well-hydrated. Take rovv-pbe-libpzfe ibuprofen, 3 pills which is 600 mg, every 6 hours with food as needed for pain. Come back to the emergency department for reevaluation if you have a return of pain, fever, vomiting or any other emergent, concerning symptoms. Copy Copies To 1: JAMILA ADAN MD, KATHRYN M MD March 24, 2021 07:23
[2021-03-24] MEDS ORDERED: KETOROLAC 30 MG/ML VIAL IVP ONE (07:30)
[2021-03-24] MEDS: ONDANSETRON 4 MG/2 ML (SDV) Z0FRAN IVP ONE (07:31)
[2021-03-24 07:49] LABS: POTASSIUM 4.2 MMOL/L (3.6-5.0)
[2021-03-24 07:50] LABS: CALCIUM 9.2 MG/DL (8.5-10.1)
[2021-03-24 07:54] LABS: CREATININE SERUM 1.17 MG/DL (0.60-1.30)
--- NOTE | 2021-03-24 08:48 | Diagnostic Imaging Report ---
PROCEDURE: CT urinary tract, rule out kidney stone. TECHNIQUE: Multiple contiguous axial images were obtained through the abdomen and pelvis without the use of intravenous contrast. Auto Exposure Controls were utilized during the CT exam to meet ALARA standards for radiation dose reduction. INDICATION: Abdominal pain. COMPARISON: 07/13/2019 FINDINGS: Included portions of the lung bases are clear. CT ABDOMEN: There is colonic diverticulosis, but no CT evidence of acute diverticulitis. Small bowel loops are nondistended. Normal appendix cannot be adequately identified, but there is no pericecal inflammation. The kidneys, adrenal glands, spleen, pancreas, and liver have an unremarkable noncontrast CT appearance. There is no loculated fluid collection, free fluid, nor free air within the abdomen. No abnormal mesenteric or retroperitoneal adenopathy is seen. Osseous structures show no acute abnormalities. CT PELVIS: Urinary bladder is unopacified. No calculi are seen within the urinary bladder. There is no loculated fluid collection, free fluid or free air. No abnormal lymph nodes are identified. Osseous structures showed no acute abnormalities. IMPRESSION: 1. No acute abnormalities are seen within the abdomen or pelvis. 2. Colonic diverticulosis, but no CT evidence of acute diverticulitis. Dictated by: Dictated on workstation # [id number]
--- NOTE | 2021-03-24 08:49 | Diagnostic Imaging Report ---
INDICATION: Lower abdominal and pelvic pain. COMPARISON: CT abdomen and pelvis from later same day FINDINGS: Two supine radiographic views of the abdomen were obtained and show nondistended loops of small bowel. There is no large collection of free intraperitoneal air. No unexpected extraosseous calcifications or radiopaque foreign bodies are seen. Osseous structures show age-related degenerative changes. IMPRESSION: 1. Nonobstructive small bowel gas pattern. Dictated by: Dictated on workstation # [id number]
[2021-03-24 09:09] VITALS: BP 159/100
== END 2021-03-24 09:08 | disposition home or self-care (01) ==
LOC: EDUNIT# 05:58 → ER 06:02
DX: R10.31 Right lower quadrant pain (principal); R10.11 Right upper quadrant pain; R31.9 Hematuria, unspecified; K21.9 Gastro-esophageal reflux disease without esophagitis; G89.29 Other chronic pain; M54.9 Dorsalgia, unspecified; F32.9 Major depressive disorder, single episode, unspecified; Z88.1 Allergy status to other antibiotic agents; Z77.22 Contact with and (suspected) exposure to environmental tobacco smoke (acute) (chronic); Z79.891 Long term (current) use of opiate analgesic; Z79.899 Other long term (current) drug therapy
CPT/HCPCS: 36415; 74018; 74176; 80048; 81000

== ENCOUNTER 2023-08-21 14:10 | Emergency (ER) | payer MEDICARE ==
[~2023-08-21] VITALS: Ht 165.1 cm; Wt 128.3 kg
[~2023-08-21 14:10] MED LIST changes: -FLUC150T2 PO; +FLUC150T41 PO; -SULF1TAB35 PO; +SULF1TAB38 PO
--- NOTE | 2023-08-21 14:40 | ED Back Pain ---
General Chief Complaint: Back Problems Stated Complaint: BACK PAIN | Nursing Triage Note: PT AMB TO RM 7 WITH CC OF L FLANK PAIN X 1 WEEK. PT REPORTS PAIN RADIATES FROM L LOWER BACK TO L LOWER ABD/SIDE. PT STATES WAS SENT FROM DR. HARRISON OFFICE FOR US. PT REPORTS RX OF ANTIBIOTIC X 1WEEK. Source of Information: Patient Exam Limitations: No Limitations History of Present Illness Date Seen by Provider: Aug 21, 2023 Time Seen by Provider: 14:40 Initial Comments Patient is a 48yo female who presents to the ER with left flank pain onset about 1 week to 10 days ago. She is concerned she has colitis. The pain seems to radiate around her left flank to her left lower stomach. She has been having "soft" not really formed stool - non black, non bloody. Has had bouts of colitis in the past as well as diverticulitis. Has had prior colonoscopy with polyp and then 3 year follow up which was clear. No nausea/vomiting- has been on clear liquids and has "tested" herself with solid food which seems to worsen her symptoms. She states that she has had a little dysuria this morning but attributes that to possibly being dehydrated. She has had previous cholecystectomy, appendectomy, total hysterectomy. No fevers or chills. Currently rates her pain at a "5" at its worst at a "10". Did take ibuprofen last night which seems to help a little bit. Has had previous kidney stone. She states this feels different. She called her primary care physician's office last week and was started on Augmentin for concern for diverticulitis. Its not helping Location: Other (left flank) Timing/Duration: Other (1-2 weeks; worse today) Severity: Severe (10+ at it's worst) Allergies and Home Medications Allergies Coded Allergies: cefpodoxime (Verified Allergy, Unknown, 06/25/20) cephalexin (Verified Allergy, Unknown, 06/25/20) doxycycline (Unverified Allergy, Unknown, Hives, 06/28/20) ondansetron (Verified Allergy, Unknown, 08/21/23) tetracycline (Verified Allergy, Unknown, "CYCLINES", 06/25/20) Patient Home Medication List Bupropion HCl (Bupropion Xl) 300 Mg Tab.er.24h, 300 MG PO DAILY, (Reported) Entered as Reported by: GEMINI GARNETT on 06/25/20 1211 Ferrous Sulfate (Iron) 325 Mg Tablet, 325 MG PO DAILY, (Reported) Entered as Reported by: GEMINI GARNETT on 06/25/20 1211 Fexofenadine/Pseudoephedrine (Vijaya-D 24 Hour Tablet) 1 Each Tab.er.24h, 1 EACH PO DAILY, (Reported) Entered as Reported by: GEMINI GARNETT on 06/25/20 1211 Flaxseed Oil (Flax Seed Oil) 1,000 Mg Capsule, 1,000 MG PO DAILY, (Reported) Entered as Reported by: GEMINI GARNETT on 06/25/20 1211 Fluconazole (Fluconazole) 150 Mg Tablet, 150 MG PO DAILY, (Reported) Entered as Reported by: BALJIT GOTTLIEB on 06/28/20 1144 Hydrocodone Bit/Acetaminophen (HYDROcodone/APAP 10/325 TABLET) 1 Ea Tab, 1 TAB PO Q6H Prescribed by: JAMAAL HINES on 06/28/20 1208 Omeprazole (Omeprazole) 20 Mg Capsule.dr, 20 MG PO DAILY, (Reported) Entered as Reported by: GEMINI GARNETT on 06/25/20 1211 Sulfamethoxazole/Trimethoprim (Bactrim Ds Tablet) 1 Each Tablet, 1 EACH PO BID, (Reported) Entered as Reported by: BALJIT GOTTLIEB on 06/28/20 1144 Vitamin B Complex (Super B-50 Complex) 1 Each Capsule, 1 EACH PO DAILY, (Reported) Entered as Reported by: GEMINI GARNETT on 06/25/20 1211 Vitamin D (Vitamin D3) 10 Mcg Tablet, 400 MCG PO DAILY, (Reported) Entered as Reported by: GEMINI GARNETT on 06/25/20 1211 Review of Systems Constitutional: see HPI EENTM: no symptoms reported Respiratory: no symptoms reported Cardiovascular: no symptoms reported Gastrointestinal: abdominal pain Genitourinary: dysuria (mild burning this morning) : No Musculoskeletal: other (left flank pain) Skin: no symptoms reported Psychiatric/Neurological: No Symptoms Reported All Other Systems Reviewed Negative Unless Noted: Yes Past Yrtkqyy-Xylpsu-Elbmxq Hx Patient Social History Tobacco Use?: Yes Tobacco type used: Cigarettes Smoking Status: Current Everyday Smoker Substance use?: No Alcohol Use?: Yes Alcohol Frequency: Once in a while Seasonal Allergies Seasonal Allergies: Yes Past Medical History Surgery/Hospitalization HX: HS Surgeries: Yes (/D & C) Appendectomy, Section, Gallbladder, Hysterectomy Respiratory: No Cardiac: No Neurological: No Reproductive Disorders: Yes (PCOS/ENDOMETRIOSIS/OVARIAN CYST) FRONT DESK ASSISTANT History: Hysterectomy Sexually Transmitted Disease: No Genitourinary: Yes Kidney Stones Gastrointestinal: Yes Gastroesophageal Reflux, Chronic Constipation, Chronic Diarrhea Musculoskeletal: Yes Arthritis, Chronic Back Pain Endocrine: No HEENT: Yes (GLASSES) Loss of Vision: Denies Hearing Impairment: Denies Cancer: No Psychosocial: Yes Anxiety, Depression Integumentary: No Blood Disorders: Yes (ANEMIA ) Adverse Reaction/Blood Tranf: No (HAS HAD BLOOD WITH NO REACITON) Family Medical History No Pertinent Family Hx Physical Exam Vital Signs Vital Signs - First Documented 08/21/23 14:14 Temp 36.1 Pulse 84 Resp 20 B/P (MAP) 176/110 (132) Pulse Ox 96 O2 Delivery Room Air Capillary Refill : Less Than 3 Seconds Height, Weight, BMI Height: 5'5.00" Weight: 264lbs. 0.0oz. 119.088848mo; 47.00 BMI Method:Stated General Appearance: No Apparent Distress, WD/WN HEENT: PERRL/EOMI, Moist Mucous Membranes Neck: Normal Inspection Cardiovascular: Regular Rate, Rhythm, Normal Peripheral Pulses Respiratory: Lungs Clear, Normal Breath Sounds, No Accessory Muscle Use, No Respiratory Distress Gastrointestinal: Normal Bowel Sounds, Soft, Tenderness (mild tenderness Left upper quadrant and left flank (exam is confounded by obesity)) Back: No CVA Tenderness Extremity: Normal Capillary Refill, Normal Inspection, Normal Range of Motion Neurologic/Psychiatric: Alert, Oriented x3, No Motor/Sensory Deficits, Normal Mood/Affect Skin: Normal Color, Warm/Dry; No Rash Progress/Results/Core Measures Results/Orders Lab Results Laboratory Tests Test 08/21/23 14:38 08/21/23 14:46 Range/Units Urine Color YELLOW Urine Clarity CLEAR Urine pH 5.5 5-9 Urine Specific [place] 1.015 L 1.016-1.022 Urine Protein NEGATIVE NEGATIVE Urine Glucose (UA) NEGATIVE NEGATIVE Urine Ketones NEGATIVE NEGATIVE Urine Nitrite NEGATIVE NEGATIVE Urine Bilirubin NEGATIVE NEGATIVE Urine Urobilinogen 0.2 < = 1.0 MG/DL Urine Leukocyte Esterase NEGATIVE NEGATIVE Urine RBC (Auto) NEGATIVE NEGATIVE Urine RBC NONE /HPF Urine WBC RARE /HPF Urine Squamous Epithelial Cells 10-25 H /HPF Urine Crystals NONE /LPF Urine Bacteria NEGATIVE /HPF Urine Casts NONE /LPF Urine Hyaline Casts /LPF Urine Mucus NEGATIVE /LPF Urine Culture Indicated NO White Blood Count 10.4 4.3-11.0 10^3/uL Red Blood Count 5.40 H 3.80-5.11 10^6/uL Hemoglobin 16.0 11.5-16.0 g/dL Hematocrit 49 35-52 % Mean Corpuscular Volume 90 80-99 fL Mean Corpuscular Hemoglobin 30 25-34 pg Mean Corpuscular Hemoglobin Concent 33 32-36 g/dL Red Cell Distribution Width 12.7 10.0-14.5 % Platelet Count 351 130-400 10^3/uL Mean Platelet Volume 9.4 9.0-12.2 fL Immature Granulocyte % (Auto) 0 % Neutrophils (%) (Auto) 60 42-75 % Lymphocytes (%) (Auto) 29 12-44 % Monocytes (%) (Auto) 7 0-12 % Eosinophils (%) (Auto) 3 0-10 % Basophils (%) (Auto) 0 0-10 % Neutrophils # (Auto) 6.3 1.8-7.8 X 10^3 Lymphocytes # (Auto) 3.1 1.0-4.0 X 10^3 Monocytes # (Auto) 0.7 0.0-1.0 X 10^3 Eosinophils # (Auto) 0.4 H 0.0-0.3 10^3/uL Basophils # (Auto) 0.0 0.0-0.1 10^3/uL Immature Granulocyte # (Auto) 0.0 0.0-0.1 10^3/uL Sodium Level 141 135-145 MMOL/L Potassium Level 4.0 3.6-5.0 MMOL/L Chloride Level 105 98-107 MMOL/L Carbon Dioxide Level 25 21-32 MMOL/L Anion Gap 11 5-14 MMOL/L Blood Urea Nitrogen 11 7-18 MG/DL Creatinine 1.12 0.60-1.30 MG/DL Estimat Glomerular Filtration Rate 61 BUN/Creatinine Ratio 10 Glucose Level 82 70-105 MG/DL Calcium Level 9.3 8.5-10.1 MG/DL My Orders Orders - KARLIE ALFONSO MD Ed Iv/Invasive Line Start (08/21/23 14:52) Cbc And Automated Diff (08/21/23 14:52) Basic Metabolic Panel (08/21/23 14:52) Ua Culture If Indicated (08/21/23 14:52) Ns Iv 1000 Ml (Ns Iv 1000 Ml) (08/21/23 15:00) Ct Abd/Pelvis Wo(Kidney Stone) (08/21/23 15:55) Ketorolac Injection (Ketorolac Injection (08/21/23 16:00) Medications Given in ED Current Medications Medications Dose Ordered Sig/Edwina Route Start Time Stop Time Status Last Admin Dose Admin Ketorolac Tromethamine 15 mg ONCE ONCE IVP 08/21/23 16:00 08/21/23 16:01 DC 08/21/23 16:02 15 MG Vital Signs/I&O 08/21/23 14:14 Temp 36.1 Pulse 84 Resp 20 B/P (MAP) 176/110 (132) Pulse Ox 96 O2 Delivery Room Air Blood Pressure Mean: 132 Progress Progress Note : Time: 16:41 Departure Impression Primary Impression: Left flank pain Disposition: 01 HOME, SELF-CARE Condition: Improved Departure-Patient Inst. Decision time for Depature: 16:38 Referrals: JAIMLA ADAN MD (PCP/Family) Primary Care Physician Patient Instructions: Flank Pain ED Add. Discharge Instructions: Continue your Augmentin prescription until it is finished. We are adding Flagyl, 500 mg tablets 3 times a day for 1 week. Be sure and finish this entire prescription. You can take rsje-fdb-bosyrux ibuprofen 3 tablets which is 600 mg 3 times daily with food as needed for pain. If you develop a fever, worsening pain or vomiting please return to the emergency department for reevaluation. You can try kaki-pqe-ikjhrek Benadryl or Unisom for nausea. Keep in mind this medication can be a little sedating. Please follow packaging instructions. Scripts Metronidazole (Metronidazole) 500 Mg Tablet 500 MG PO TID, #21 TAB Prov: KARLIE ALFONSO MD 08/21/23 Copy Copies To 1: JAMILA ADAN MD, KATHRYN M MD Aug 21, 2023 14:40
[2023-08-21] MEDS ORDERED: NS IV 1000 ML 1,000 ML IV SCH (15:00)
[2023-08-21 15:13] LABS: BASOPHILS % (AUTO) 0 % (0-10); CALCIUM 9.3 MG/DL (8.5-10.1); EOSINOPHILS # (AUTO) 0.4 10^3/uL (0.0-0.3); EOSINOPHILS % (AUTO) 3 % (0-10); HEMATOCRIT 49 % (35-52); LYMPHOCYTES # (AUTO) 3.1 X 10^3 (1.0-4.0); LYMPHOCYTES % (AUTO) 29 % (12-44); MEAN CORPUSCULAR HEMOGLOBIN 30 pg (25-34); MEAN CORPUSCULAR HGB CONC 33 g/dL (32-36); MEAN CORPUSCULAR VOLUME 90 fL (80-99); MEAN PLATELET VOLUME 9.4 fL (9.0-12.2); MONOCYTES # (AUTO) 0.7 X 10^3 (0.0-1.0); MONOCYTES % (AUTO) 7 % (0-12); NEUTROPHILS # (AUTO) 6.3 X 10^3 (1.8-7.8); NEUTROPHILS % (AUTO) 60 % (42-75); PLATELET COUNT 351 10^3/uL (130-400); WHITE BLOOD COUNT 10.4 10^3/uL (4.3-11.0)
[2023-08-21 15:17] LABS: CREATININE SERUM 1.12 MG/DL (0.60-1.30)
[2023-08-21 15:32] LABS: BACTERIA,URINE NEGATIVE /HPF; BILIRUBIN,URINE NEGATIVE (NEGATIVE); CLARITY,URINE CLEAR; COLOR,URINE YELLOW; GLUCOSE, URINE (UA) NEGATIVE (NEGATIVE); KETONES,URINE NEGATIVE (NEGATIVE); LEUKOCYTE ESTERASE ,URINE NEGATIVE (NEGATIVE); NITRITE,URINE NEGATIVE (NEGATIVE); PH,URINE 5.5 (5-9); PROTEIN,URINE NEGATIVE (NEGATIVE); WBC,URINE RARE /HPF
[2023-08-21] MEDS ORDERED: KETOROLAC INJ 15 MG/ML VIAL IVP ONE (16:00)
--- NOTE | 2023-08-21 16:28 | Diagnostic Imaging Report ---
EXAMINATION: CT abdomen and pelvis without contrast. TECHNIQUE: Multiple contiguous axial images were obtained through the abdomen and pelvis without the use of intravenous contrast. All CT scans use one or more of the following dose optimizing techniques: automated exposure control, MA and/or KvP adjustment based on patient size and exam type or iterative reconstruction. HISTORY: left flank pain COMPARISON: 03/24/2021. FINDINGS: Lung bases: Bibasilar dependent atelectasis. Solid organs: The liver is normal. The gallbladder is surgically absent. There is no biliary ductal dilation. Pancreas is normal. Spleen is normal. Adrenal glands are normal. The kidneys are normal without visualized calculus or hydronephrosis. Bowel: The stomach and small bowel are normal without obstruction. There is scattered colonic diverticulosis. There are no secondary signs of acute appendicitis. Peritoneum: There is no intraperitoneal free fluid or free air. No suspicious lymphadenopathy. Vasculature: Normal without aneurysm. Musculoskeletal: Degenerative changes of the spine without suspicious osseous lesion or compression fracture. Pelvis: The uterus is surgically absent. No adnexal mass. The urinary bladder is normal. IMPRESSION: 1. No visualized renal calculus or hydronephrosis. 2. No other acute abnormality in the abdomen or pelvis. Dictated by: Dictated on workstation # [id number]
[2023-08-21] MEDS ORDERED: METR-145 PO (16:38)
[2023-08-21 16:55] VITALS: BP 150/77
== END 2023-08-21 16:55 | disposition home or self-care (01) ==
LOC: EDUNIT# 14:10 → ER 14:11
DX: R10.12 Left upper quadrant pain (principal); F17.210 Nicotine dependence, cigarettes, uncomplicated; Z90.49 Acquired absence of other specified parts of digestive tract
CPT/HCPCS: 36415; 74176; 80048; 81000; 85025

== ENCOUNTER → 2023-10-08 | Outpatient (CLI) | payer MEDICARE ==
[~2023-10-08] MED LIST changes: +METR-145 PO
--- NOTE | 2023-10-08 09:46 | Diagnostic Imaging Report ---
CLINICAL INDICATIONS: Patient had recent CT scan for abdominal pain. MRI of the lumbar spine was suggested from CT results. EXAM: MRI of the lumbar spine performed without IV contrast. Sequences include sagittal T2, sagittal T1, sagittal T2 fat-sat, and axial T2. COMPARISON: CT scan of abdomen and pelvis without contrast dated 08/21/2023. FINDINGS: There is no acute lumbar spine fracture or dislocation. There is straightening of lumbar spine posture. There are moderately hypertrophic spurs throughout the lumbar spine and lumbar spine facet arthropathy. The visualized portions of the distal thoracic spinal cord, conus medullaris, and cauda equina nerve roots are unremarkable. The conus medullaris tip is seen at the upper L1 vertebral body level. There are Modic type I degenerative signal changes involving the L2-L3 endplates. There are Modic type II degenerative signal changes involving the L1-L2 and L3-L4 endplates. L1-L2: There is mild diffuse disk bulge and mild bilateral facet arthropathy. There is no significant central canal or neural foramen narrowing. L2-L3: There is diffuse disk bulge with hypertrophic disk spurs in the right extraforaminal region. The extraforaminal right disk spur may cause slight encroachment upon the extra foraminal right L2 nerve as best seen on the axial sequence. There is moderate bilateral facet arthropathy/hypertrophy. There is no significant central canal stenosis. There is no significant neural foramen narrowing. L3-L4: There is mild diffuse disk bulge and moderate bilateral facet arthropathy. There is no significant central canal stenosis. There is mild bilateral neural foramen narrowing. L4-L5: There is mild disk bulge with superimposed right foraminal and extraforaminal disk herniation. There is severe bilateral facet arthropathy/hypertrophy. There is left-sided degenerative facet effusion. There is no significant central canal stenosis. There is mild left neural foramen narrowing. There is moderate to severe right neural foramen narrowing. L5-S1: There is mild posterior disk bulge with disk spurs extending to the right foraminal region. There is no significant central canal stenosis. There is severe right facet arthropathy/hypertrophy and moderate left facet arthropathy. There is mild to moderate bilateral neural foramen narrowing with the right side worse than left. IMPRESSION: 1: There is no acute lumbar spine fracture or dislocation. 2: There is multilevel lumbar spine degenerative disk disease which is described above. Dictated by: Dictated on workstation # [id number]
== END ==
LOC: RAD 08:01
PROVIDERS: ATTEND Physician Assistant
DX: M51.36 Other intervertebral disc degeneration, lumbar region (principal); M51.37 Other intervertebral disc degeneration, lumbosacral region; R10.84 Generalized abdominal pain
CPT/HCPCS: 72148